=== PATIENT | male | born 1950 | race Caucasian/White ===

== ENCOUNTER → 2017-01-23 | Outpatient (CLI) | payer BC, MEDICARE ==
[~2017-01-23] MED LIST: ALOG1TAB2 PO; ASPI-231 PO; GLIM2TAB33 PO; LISI10TA6 PO; METF-316 PO; SIMV-8 PO
[2017-01-23 09:52] LABS: Urine RBC None Seen /hpf (0 - 3)
[2017-01-23 10:18] LABS: Urine Bilirubin Negative (Negative); Urine Blood Negative /uL (Negative); Urine Glucose Normal (Normal); Urine Ketone Negative (Negative); Urine Nitrite Negative (Negative); Urine Squamous Epithelial Cell FEW /hpf (<5); Urine Urobilinogen Normal (Negative)
[2017-01-23 10:34] LABS: Bilirubin, Total 1.1 mg/dL (0.2-1.0); Calcium 8.7 mg/dL (8.5-10.1); Potassium 4.3 mmol/L (3.5-5.1); Total Protein 7.5 g/dL (6.4-8.2)
[2017-01-23 10:41] LABS: INR 1.07 (0.9-1.15); Partial Thromboplastin Time 28.7 sec (22.64-33.71)
[2017-01-23 10:42] LABS: Urine Color Yellow (Yellow)
[2017-01-23 10:50] LABS: Basophils # (auto) 0 uL; Basophils % (auto) 0.4 % (0.0-2.0); Eosinophils # (auto) 0.1 uL; Eosinophils % (auto) 1.7 % (0.0-7.0); Hematocrit 43.1 % (41.0-53.0); Hemoglobin 14.5 g/dL (13.5-17.5); Lymphocytes # (auto) 1.8 uL; Mean Corpuscular Hemoglobin 31.5 pg (28.0-32.0); Mean Corpuscular Hgb Conc. 33.7 g/dL (32.0-36.0); Mean Corpuscular Volume 93.7 fL (80.0-100.0); Mean Platelet Volume 8.9 fL (7.4-10.4); Monocytes # (auto) 0.6 uL; Neutrophils # (auto) 4.1 uL; Neutrophils % (auto) 61.9 % (37.0-80.0); Platelet Count (auto) 201 10^3/uL (140-450); Red Cell Distribution Width 12.7 % (11.6-16.0); White Blood Cell 6.6 10^3/uL (4.4-10.8)
== END | disposition home or self-care (01) ==
LOC: LAB 09:10
PROVIDERS: ATTEND Orthopaedic Surgery
DX: M17.9 Osteoarthritis of knee, unspecified (principal)
CPT/HCPCS: 36415; 80053; 81001; 83036; 85025; 85610; 85730; 86850; 86900; 86901

== ENCOUNTER 2017-01-27 06:13 | Inpatient (IN) | payer BC, MEDICARE ==
[~2017-01-27] VITALS: Ht 203.2 cm; Wt 158.6 kg
[2017-01-27] MEDS ORDERED: ceFAZolin 1GM/50ML D5W 50 ML IV ONE (06:53)
[2017-01-27] MEDS ORDERED: MIDAZOLAM HCL 1MG/1ML-2 ML VIAL ONE (07:30)
[2017-01-27] MEDS ORDERED: ROCURONIUM 10MG/ML 10ML VIAL IV ONE (07:30)
[2017-01-27] MEDS ORDERED: fentaNYL CITRATE 5 ML ONE ×2 (07:30→07:57)
[2017-01-27] MEDS ORDERED: LIDOCAINE 1% HCL (LOCAL ANESTH.) INJ 20ML MDV ONE (07:42)
[2017-01-27] MEDS ORDERED: BUPIVACAINE 0.25% INJ 50ML VIAL ONE (07:43)
[2017-01-27] MEDS ORDERED: BUPIVACAINE W/ EPINEPH 0.25% INJ 50ML MDV ONE (07:43)
[2017-01-27] MEDS ORDERED: LIDOCAINE W/ EPINEPHRINE 1 % INJ 30ML ONE (07:43)
[2017-01-27] MEDS ORDERED: SUCCINYLCHOLINE CHLORIDE 20 MG/ML 10ML VIAL IV ONE (07:46)
[2017-01-27] MEDS ORDERED: GLYCOPYRROLATE 0.2 MG/ML 1ML VIAL IV ONE (07:51)
[2017-01-27] MEDS ORDERED: PROPOFOL 10 MG/ML 20 ML IV ONE (07:51)
[2017-01-27] MEDS ORDERED: KETOROLAC TROMETH 30 MG/ML 1ML VIAL IV ONE (07:51)
[2017-01-27] MEDS ORDERED: HYDROmorphone HCL 2 MG/ML VL ONE (09:26)
[2017-01-27] MEDS ORDERED: hydrALAZINE HCL 20 MG/ML VL IV PRN (10:45)
[2017-01-27] MEDS ORDERED: HYDROmorphone HCL 2 MG/ML VL IV PRN (10:45)
[2017-01-27] MEDS ORDERED: ePHEDrine SULFATE 50 MG/ML AMP IV PRN (10:45)
[2017-01-27] MEDS ORDERED: ONDANSETRON HCL 4 MG/2 ML VIAL IV ONE (10:45)
[2017-01-27] MEDS ORDERED: HYDROcodone-ACET 10/325MG TAB PO PRN (11:00)
[2017-01-27] MEDS ORDERED: TEMAZEPAM 15 MG CAP PO PRN (11:00)
[2017-01-27] MEDS ORDERED: ACETAMINOPHEN 325 MG TAB PO PRN (11:00)
[2017-01-27] MEDS ORDERED: ONDANSETRON HCL 4 MG/2 ML VIAL IV PRN (11:00)
[2017-01-27 12:30] VITALS: BP 144/68
[2017-01-27] MEDS: ceFAZolin 1GM/50ML D5W 50 ML IV SCH ×2 (12:39→18:39)
[2017-01-27] MEDS: LACTATED RINGER'S 1,000 ML IV SCH (12:40)
[2017-01-27 13:00] VITALS: BP 144/68
[2017-01-27] MEDS ORDERED: DEXTROSE (50%) 50ML SYRG IV PRN (14:15)
[2017-01-27] MEDS: ACCU-CHEK COMFORT CURVE STRIP VI SCH ×2 (16:55→22:00)
[2017-01-27] MEDS: InsuLIN REG 1unit/0.01ml Soln (100units/ml) SC SCH ×2 (16:56→22:00)
[2017-01-27 17:00] VITALS: BP 123/68
[2017-01-27] MEDS: GLIMEPIRIDE 2 MG TAB PO SCH (18:19)
[2017-01-27] MEDS: SODIUM CHLOR 0.9% PF (SALINE LOCK) 10ML VIAL IV SCH ×2 (18:20→21:58)
[2017-01-27] MEDS: metFORMIN HYDROCHLORIDE 500 MG TAB PO SCH (18:20)
[2017-01-27] MEDS: HYDROmorphone HCL 2 MG/ML VL IV PRN (20:03)
[2017-01-27 21:30] VITALS: BP 120/77
[2017-01-27] MEDS: DOCUSATE SOD 100 MG CAP PO SCH (21:58)
[2017-01-27] MEDS: LISINOPRIL 10 MG TAB PO SCH (21:58)
[2017-01-27] MEDS: oxyCODONE ER 10 MG TAB PO SCH (23:49)
[2017-01-28] MEDS: HYDROmorphone HCL 2 MG/ML VL IV PRN ×4 (01:56→20:48)
[2017-01-28] MEDS: ceFAZolin 1GM/50ML D5W 50 ML IV SCH (02:12)
[2017-01-28 05:00] VITALS: BP 128/70
[2017-01-28] MEDS: InsuLIN REG 1unit/0.01ml Soln (100units/ml) SC SCH ×4 (05:01→21:36)
[2017-01-28] MEDS: SODIUM CHLOR 0.9% PF (SALINE LOCK) 10ML VIAL IV SCH ×3 (05:01→20:47)
[2017-01-28] MEDS: metFORMIN HYDROCHLORIDE 500 MG TAB PO SCH ×2 (05:08→18:09)
[2017-01-28] MEDS: LACTATED RINGER'S 1,000 ML IV SCH (06:49)
[2017-01-28] MEDS: ACCU-CHEK COMFORT CURVE STRIP VI SCH ×4 (07:00→20:48)
[2017-01-28 07:55] VITALS: BP 138/66
[2017-01-28 08:15] LABS: Hematocrit 37.4 % (41.0-53.0); Hemoglobin 12.5 g/dL (13.5-17.5)
[2017-01-28] MEDS: GLIMEPIRIDE 2 MG TAB PO SCH ×2 (08:18→18:08)
[2017-01-28 09:00] VITALS: BP 138/66
[2017-01-28] MEDS: ENOXAPARIN SOD 40 MG/0.4 ML SYRINGE SC SCH (10:13)
[2017-01-28] MEDS: DOCUSATE SOD 100 MG CAP PO SCH ×2 (10:13→20:47)
[2017-01-28] MEDS: oxyCODONE ER 10 MG TAB PO SCH ×2 (10:14→20:48)
[2017-01-28 13:00] VITALS: BP 130/59
[2017-01-28 17:00] VITALS: BP 111/69
[2017-01-28] MEDS: LISINOPRIL 10 MG TAB PO SCH (20:47)
[2017-01-28 22:00] VITALS: BP 132/77
[2017-01-29] MEDS: LACTATED RINGER'S 1,000 ML IV SCH ×2 (02:49→22:47)
[2017-01-29 05:00] VITALS: BP 130/73
[2017-01-29] MEDS: SODIUM CHLOR 0.9% PF (SALINE LOCK) 10ML VIAL IV SCH ×3 (05:17→22:46)
[2017-01-29] MEDS: ACCU-CHEK COMFORT CURVE STRIP VI SCH ×4 (05:18→22:47)
[2017-01-29] MEDS: HYDROmorphone HCL 2 MG/ML VL IV PRN ×4 (05:23→19:20)
[2017-01-29] MEDS: InsuLIN REG 1unit/0.01ml Soln (100units/ml) SC SCH ×4 (05:23→22:00)
[2017-01-29] MEDS: metFORMIN HYDROCHLORIDE 500 MG TAB PO SCH ×2 (05:23→18:00)
[2017-01-29 07:33] LABS: Hematocrit 35.2 % (41.0-53.0)
[2017-01-29 08:00] VITALS: BP 124/62
[2017-01-29] MEDS: GLIMEPIRIDE 2 MG TAB PO SCH ×2 (09:06→18:00)
[2017-01-29] MEDS: DOCUSATE SOD 100 MG CAP PO SCH ×2 (10:43→22:29)
[2017-01-29] MEDS: oxyCODONE ER 10 MG TAB PO SCH ×2 (10:43→22:46)
[2017-01-29] MEDS: ENOXAPARIN SOD 40 MG/0.4 ML SYRINGE SC SCH (10:43)
[2017-01-29 13:00] VITALS: BP 125/58
[2017-01-29 17:00] VITALS: BP 124/61
[2017-01-29 20:05] VITALS: BP 117/61
[2017-01-29 22:00] VITALS: BP 117/61
[2017-01-29] MEDS: LISINOPRIL 10 MG TAB PO SCH (22:30)
[2017-01-30] MEDS: HYDROmorphone HCL 2 MG/ML VL IV PRN ×4 (02:23→23:20)
[2017-01-30 05:00] VITALS: BP 130/77
[2017-01-30] MEDS: SODIUM CHLOR 0.9% PF (SALINE LOCK) 10ML VIAL IV SCH ×3 (06:00→21:38)
[2017-01-30] MEDS: metFORMIN HYDROCHLORIDE 500 MG TAB PO SCH ×2 (06:46→18:02)
[2017-01-30] MEDS: InsuLIN REG 1unit/0.01ml Soln (100units/ml) SC SCH ×4 (06:56→21:44)
[2017-01-30] MEDS: ACCU-CHEK COMFORT CURVE STRIP VI SCH ×4 (06:56→21:39)
[2017-01-30 08:00] VITALS: BP_SYST 117; BP_SYST 119; BP_DIAS 52; BP_DIAS 61
[2017-01-30 08:42] LABS: Hematocrit 33.9 % (41.0-53.0); Hemoglobin 11.4 g/dL (13.5-17.5)
[2017-01-30] MEDS: GLIMEPIRIDE 2 MG TAB PO SCH ×2 (08:47→18:01)
[2017-01-30] MEDS: DOCUSATE SOD 100 MG CAP PO SCH ×2 (08:48→21:38)
[2017-01-30] MEDS: ENOXAPARIN SOD 40 MG/0.4 ML SYRINGE SC SCH (08:48)
[2017-01-30] MEDS: oxyCODONE ER 10 MG TAB PO SCH ×2 (08:48→21:37)
[2017-01-30] MEDS: LACTATED RINGER'S 1,000 ML IV SCH (09:01)
[2017-01-30 13:00] VITALS: BP 106/57
[2017-01-30 17:00] VITALS: BP 110/59
[2017-01-30 20:04] VITALS: BP 105/48
[2017-01-30 21:14] VITALS: BP 105/48
[2017-01-30] MEDS: LISINOPRIL 10 MG TAB PO SCH (21:38)
[2017-01-31 05:05] VITALS: BP 135/65
[2017-01-31] MEDS: SODIUM CHLOR 0.9% PF (SALINE LOCK) 10ML VIAL IV SCH ×2 (06:09→14:00)
[2017-01-31] MEDS: metFORMIN HYDROCHLORIDE 500 MG TAB PO SCH (06:26)
[2017-01-31] MEDS: ACCU-CHEK COMFORT CURVE STRIP VI SCH ×2 (06:26→11:30)
[2017-01-31] MEDS: InsuLIN REG 1unit/0.01ml Soln (100units/ml) SC SCH ×2 (06:26→11:30)
[2017-01-31 07:08] LABS: Hematocrit 34.3 % (41.0-53.0); Hemoglobin 11.6 g/dL (13.5-17.5)
[2017-01-31 08:00] VITALS: BP 129/68
[2017-01-31] MEDS: GLIMEPIRIDE 2 MG TAB PO SCH (08:58)
[2017-01-31 09:00] VITALS: BP 129/68
[2017-01-31] MEDS: ENOXAPARIN SOD 40 MG/0.4 ML SYRINGE SC SCH (10:48)
[2017-01-31] MEDS: DOCUSATE SOD 100 MG CAP PO SCH (10:48)
[2017-01-31] MEDS: oxyCODONE ER 10 MG TAB PO SCH (10:50)
[2017-01-31 13:42] VITALS: BP 142/73
== END 2017-01-31 14:45 | disposition home or self-care (01) | DRG 470 ==
LOC: SUR 06:13 → CENTRAL 06:14
PROVIDERS: ADMIT Orthopaedic Surgery; ATTEND Internal Medicine
PROC: 0MBN0ZZ Excision of Right Knee Bursa and Ligament, Open Approach (ICD-10-PCS; 2017-01-27)
PROC: 0SRC0J9 Replacement of Right Knee Joint with Synthetic Substitute, Cemented, Open Approach (ICD-10-PCS; principal; 2017-01-27 07:51)
DX: M17.11 Unilateral primary osteoarthritis, right knee (principal); E66.9 Obesity, unspecified; E11.9 Type 2 diabetes mellitus without complications; M70.41 Prepatellar bursitis, right knee; Z68.38 Body mass index [BMI] 38.0-38.9, adult
CPT/HCPCS: 36415; 73562; 82962; 85014; 85018; 97110; 97116; 97530; J0330; J0690; J1815; J1885; J2001; J2250; J2704; J3490

== ENCOUNTER 2017-02-04 18:17 | Emergency (ER) | payer BC, MEDICARE ==
[~2017-02-04] VITALS: Ht 203.2 cm; Wt 136.1 kg
[~2017-02-04 18:17] MED LIST changes: -ASPI-231 PO
[2017-02-04 18:29] VITALS: BP 154/89
[2017-02-04 20:17] LABS: Basophils # (auto) 0 uL; Basophils % (auto) 0.5 % (0.0-2.0); Eosinophils # (auto) 0.1 uL; Eosinophils % (auto) 1.8 % (0.0-7.0); Hemoglobin 11.3 g/dL (13.5-17.5); Lymphocytes # (auto) 1.4 uL; Lymphocytes % (auto) 17.8 % (10.0-50.0); Mean Corpuscular Hemoglobin 31.4 pg (28.0-32.0); Mean Corpuscular Hgb Conc. 33.2 g/dL (32.0-36.0); Mean Corpuscular Volume 94.6 fL (80.0-100.0); Mean Platelet Volume 7.6 fL (7.4-10.4); Monocytes # (auto) 0.8 uL; Monocytes % (auto) 9.8 % (0.0-12.0); Neutrophils # (auto) 5.5 uL; Neutrophils % (auto) 70.1 % (37.0-80.0); Platelet Count (auto) 349 10^3/uL (140-450); Red Cell Distribution Width 12.9 % (11.6-16.0); White Blood Cell 7.9 10^3/uL (4.4-10.8)
[2017-02-04 20:21] LABS: Albumin 3.1 g/dL (3.4-5.0); BUN/Creatinine Ratio 16.9; Calcium 8.2 mg/dL (8.5-10.1); Potassium 4.1 mmol/L (3.5-5.1)
[2017-02-04 20:25] LABS: Total Protein 6.8 g/dL (6.4-8.2)
== END 2017-02-05 03:14 | disposition left against medical advice (07) ==
LOC: EDBD 18:17 → ER 18:21
DX: M25.561 Pain in right knee (principal); Z53.21 Procedure and treatment not carried out due to patient leaving prior to being seen by health care provider
CPT/HCPCS: 36415; 80053; 83605; 85025; 87040

== ENCOUNTER 2017-02-05 07:06 | Inpatient (IN) | payer BC, MEDICARE ==
[~2017-02-05] VITALS: Ht 203.2 cm; Wt 130.6 kg
[2017-02-05 09:57] VITALS: BP 119/63
[2017-02-05 10:00] VITALS: BP 119/63
[2017-02-05] MEDS ORDERED: VANCOMYCIN PER PHARMACY 0 MG IV SCH (10:45)
[2017-02-05] MEDS ORDERED: ENOXAPARIN SOD 40 MG/0.4 ML SYRINGE SC ONE (10:45)
[2017-02-05] MEDS ORDERED: ONDANSETRON HCL 4 MG/2 ML VIAL IV PRN (10:45)
[2017-02-05] MEDS ORDERED: DEXTROSE (50%) 50ML SYRG IV PRN (10:45)
[2017-02-05] MEDS: InsuLIN REG 1unit/0.01ml Soln (100units/ml) SC SCH ×3 (11:30→22:39)
[2017-02-05 11:44] LABS: Basophils # (auto) 0 uL; Basophils % (auto) 0.4 % (0.0-2.0); Eosinophils # (auto) 0.2 uL; Eosinophils % (auto) 2.1 % (0.0-7.0); Hematocrit 33.7 % (41.0-53.0); Hemoglobin 11.2 g/dL (13.5-17.5); Lymphocytes # (auto) 1.7 uL; Lymphocytes % (auto) 19.2 % (10.0-50.0); Mean Corpuscular Hemoglobin 31.3 pg (28.0-32.0); Mean Corpuscular Hgb Conc. 33.1 g/dL (32.0-36.0); Mean Corpuscular Volume 94.6 fL (80.0-100.0); Mean Platelet Volume 7.1 fL (7.4-10.4); Monocytes # (auto) 0.9 uL; Monocytes % (auto) 10.3 % (0.0-12.0); Neutrophils # (auto) 5.9 uL; Platelet Count (auto) 363 10^3/uL (140-450); Red Cell Distribution Width 12.9 % (11.6-16.0); White Blood Cell 8.7 10^3/uL (4.4-10.8)
[2017-02-05 12:04] LABS: Albumin 3.1 g/dL (3.4-5.0); BUN/Creatinine Ratio 16.7; Calcium 8.5 mg/dL (8.5-10.1); Potassium 4.2 mmol/L (3.5-5.1)
[2017-02-05] MEDS: HYDROmorphone HCL 2 MG/ML VL IV PRN ×3 (12:25→21:03)
[2017-02-05] MEDS: SODIUM CHLORIDE 0.9% 1,000 ML IV SCH (12:27)
[2017-02-05] MEDS: PIPERACILLIN-TAZOB 3.375GM 100 ML IV SCH ×3 (12:27→23:43)
[2017-02-05] MEDS: ACCU-CHEK COMFORT CURVE STRIP VI SCH ×3 (12:32→22:39)
[2017-02-05 12:41] VITALS: BP 137/78
[2017-02-05 12:48] LABS: INR 1.01 (0.9-1.15); Partial Thromboplastin Time 30.4 sec (22.64-33.71); Prothrombin Time 10.9 sec (9.37-12.3)
[2017-02-05] MEDS: VANCOMYCIN 1,500 MG in D5W 5% 250 ML IV SCH (14:51)
[2017-02-05 17:00] VITALS: BP 116/65
[2017-02-05] MEDS ORDERED: IOHEXOL 350 MG/ML 100ML IJ ONE (17:07)
[2017-02-05 21:07] VITALS: BP 144/80
[2017-02-05] MEDS: HYDROcodone-ACET 5/325MG TAB PO PRN (22:38)
[2017-02-06] MEDS: VANCOMYCIN 1,500 MG in D5W 5% 250 ML IV SCH ×2 (03:03→15:07)
[2017-02-06] MEDS: HYDROmorphone HCL 2 MG/ML VL IV PRN ×9 (03:04→23:20)
[2017-02-06] MEDS: SODIUM CHLORIDE 0.9% 1,000 ML IV SCH ×2 (03:25→20:03)
[2017-02-06] MEDS: PIPERACILLIN-TAZOB 3.375GM 100 ML IV SCH (05:03)
[2017-02-06 05:30] VITALS: BP 128/61
[2017-02-06 05:38] LABS: Urine RBC None Seen /hpf (0 - 3)
[2017-02-06 05:51] LABS: Urine Bilirubin Negative (Negative); Urine Blood Negative /uL (Negative); Urine Color Yellow (Yellow); Urine Glucose Normal (Normal); Urine Ketone Negative (Negative); Urine Nitrite Negative (Negative); Urine Urobilinogen Normal (Negative); Urine pH 6.5 (5.0-8.0)
[2017-02-06] MEDS: ACCU-CHEK COMFORT CURVE STRIP VI SCH ×4 (06:20→21:50)
[2017-02-06] MEDS: InsuLIN REG 1unit/0.01ml Soln (100units/ml) SC SCH ×4 (06:20→21:50)
[2017-02-06 06:23] LABS: Basophils # (auto) 0 uL; Basophils % (auto) 0.6 % (0.0-2.0); Eosinophils # (auto) 0.2 uL; Eosinophils % (auto) 3.8 % (0.0-7.0); Hematocrit 32.5 % (41.0-53.0); Lymphocytes # (auto) 1.3 uL; Lymphocytes % (auto) 20.7 % (10.0-50.0); Mean Corpuscular Hemoglobin 31.8 pg (28.0-32.0); Mean Corpuscular Hgb Conc. 33.8 g/dL (32.0-36.0); Mean Corpuscular Volume 94.2 fL (80.0-100.0); Mean Platelet Volume 7.4 fL (7.4-10.4); Monocytes # (auto) 0.6 uL; Monocytes % (auto) 9.9 % (0.0-12.0); Platelet Count (auto) 347 10^3/uL (140-450); Red Cell Distribution Width 12.3 % (11.6-16.0); White Blood Cell 6.2 10^3/uL (4.4-10.8)
[2017-02-06 06:58] LABS: Albumin 2.8 g/dL (3.4-5.0); BUN/Creatinine Ratio 12.8; Bilirubin, Total 1.1 mg/dL (0.2-1.0); Calcium 8.3 mg/dL (8.5-10.1); Total Protein 6.4 g/dL (6.4-8.2)
[2017-02-06] MEDS ORDERED: ceFAZolin 1GM VL ONE ×2 (08:28→10:25)
[2017-02-06] MEDS ORDERED: fentaNYL CITRATE 100 MCG/2 ML VL ONE (08:46)
[2017-02-06] MEDS ORDERED: PROPOFOL 10 MG/ML 20 ML IV ONE (08:46)
[2017-02-06] MEDS ORDERED: SODIUM CHLORIDE LOCK 20 ML ONE (08:46)
[2017-02-06] MEDS ORDERED: METOCLOPRAMIDE HCL 5MG/ml INJ 2ml VIAL ONE (08:46)
[2017-02-06] MEDS ORDERED: MIDAZOLAM HCL 1MG/1ML-2 ML VIAL ONE (08:46)
[2017-02-06] MEDS ORDERED: MEPERIDINE HCL (50 MG/ML) 1 ML VIAL ONE (08:46)
[2017-02-06] MEDS ORDERED: ROCURONIUM 10MG/ML 10ML VIAL IV ONE (08:46)
[2017-02-06] MEDS ORDERED: SUCCINYLCHOLINE CHLORIDE 20 MG/ML 10ML VIAL IV ONE (08:47)
[2017-02-06 08:59] VITALS: BP 125/66
[2017-02-06] MEDS ORDERED: LIDOCAINE 1% HCL (LOCAL ANESTH.) INJ 20ML MDV ONE (09:50)
[2017-02-06] MEDS ORDERED: BUPIVACAINE W/ EPINEPH 0.25% INJ 50ML MDV ONE (09:50)
[2017-02-06] MEDS ORDERED: LIDOCAINE W/ EPINEPHRINE 1 % INJ 30ML ONE (09:50)
[2017-02-06] MEDS ORDERED: BUPIVACAINE 0.25% INJ 50ML VIAL ONE (09:51)
[2017-02-06] MEDS ORDERED: KETOROLAC TROMETH 60MG/2ML VIAL IM ONE (10:27)
[2017-02-06] MEDS ORDERED: ACCU-CHEK COMFORT CURVE STRIP VI ONE (10:45)
[2017-02-06] MEDS ORDERED: ONDANSETRON HCL 4 MG/2 ML VIAL IV ONE (10:45)
[2017-02-06] MEDS ORDERED: ONDANSETRON HCL 4 MG/2 ML VIAL IV PRN (10:45)
[2017-02-06] MEDS ORDERED: KETOROLAC TROMETH 30 MG/ML 1ML VIAL IV ONE (10:45)
[2017-02-06] MEDS: ENOXAPARIN SOD 40 MG/0.4 ML SYRINGE SC SCH (12:40)
[2017-02-06] MEDS: ceFAZolin 1GM/50ML D5W 50 ML IV SCH ×2 (14:03→18:34)
[2017-02-06 17:00] VITALS: BP 114/68
[2017-02-06] MEDS: oxyCODONE ER 10 MG TAB PO SCH (21:47)
[2017-02-06 22:00] VITALS: BP 116/57
[2017-02-07] MEDS: ceFAZolin 1GM/50ML D5W 50 ML IV SCH ×4 (00:52→18:42)
[2017-02-07] MEDS: HYDROmorphone HCL 2 MG/ML VL IV PRN ×5 (01:50→20:06)
[2017-02-07] MEDS: VANCOMYCIN 1,500 MG in D5W 5% 250 ML IV SCH ×2 (03:05→15:40)
[2017-02-07 04:55] VITALS: BP 119/58
[2017-02-07 06:01] LABS: Basophils # (auto) 0 uL; Basophils % (auto) 0.5 % (0.0-2.0); Eosinophils # (auto) 0.2 uL; Eosinophils % (auto) 1.9 % (0.0-7.0); Hematocrit 31.7 % (41.0-53.0); Hemoglobin 10.7 g/dL (13.5-17.5); Lymphocytes # (auto) 1.3 uL; Lymphocytes % (auto) 15.9 % (10.0-50.0); Mean Corpuscular Hemoglobin 31.8 pg (28.0-32.0); Mean Corpuscular Hgb Conc. 33.6 g/dL (32.0-36.0); Mean Corpuscular Volume 94.5 fL (80.0-100.0); Mean Platelet Volume 7.8 fL (7.4-10.4); Monocytes # (auto) 0.8 uL; Monocytes % (auto) 9.7 % (0.0-12.0); Platelet Count (auto) 316 10^3/uL (140-450); Red Cell Distribution Width 12.1 % (11.6-16.0); White Blood Cell 8.3 10^3/uL (4.4-10.8)
[2017-02-07 06:19] LABS: Albumin 2.8 g/dL (3.4-5.0); Bilirubin, Total 0.9 mg/dL (0.2-1.0); Calcium 8.2 mg/dL (8.5-10.1); Potassium 4.3 mmol/L (3.5-5.1); Total Protein 6.2 g/dL (6.4-8.2)
[2017-02-07] MEDS: ACCU-CHEK COMFORT CURVE STRIP VI SCH ×4 (06:39→21:30)
[2017-02-07] MEDS: InsuLIN REG 1unit/0.01ml Soln (100units/ml) SC SCH ×4 (06:39→21:31)
[2017-02-07 07:23] VITALS: BP 93/63
[2017-02-07] MEDS: oxyCODONE ER 10 MG TAB PO SCH ×2 (09:52→21:30)
[2017-02-07] MEDS: ENOXAPARIN SOD 40 MG/0.4 ML SYRINGE SC SCH (09:52)
[2017-02-07] MEDS: SODIUM CHLORIDE 0.9% 1,000 ML IV SCH (12:45)
[2017-02-07 13:00] VITALS: BP 115/57
[2017-02-07 16:58] VITALS: BP 124/59
[2017-02-07 22:00] VITALS: BP 128/60
[2017-02-08] MEDS: ceFAZolin 1GM/50ML D5W 50 ML IV SCH ×4 (00:22→18:14)
[2017-02-08] MEDS: HYDROmorphone HCL 2 MG/ML VL IV PRN ×2 (00:27→06:19)
[2017-02-08] MEDS: VANCOMYCIN 1,500 MG in D5W 5% 250 ML IV SCH ×2 (02:45→15:28)
[2017-02-08 04:49] VITALS: BP 129/65
[2017-02-08 05:32] LABS: Basophils # (auto) 0.1 uL; Basophils % (auto) 1.4 % (0.0-2.0); Eosinophils # (auto) 0.2 uL; Hematocrit 33.3 % (41.0-53.0); Hemoglobin 11.2 g/dL (13.5-17.5); Lymphocytes # (auto) 1.5 uL; Lymphocytes % (auto) 17.4 % (10.0-50.0); Mean Corpuscular Hemoglobin 31.8 pg (28.0-32.0); Mean Corpuscular Hgb Conc. 33.7 g/dL (32.0-36.0); Mean Corpuscular Volume 94.2 fL (80.0-100.0); Mean Platelet Volume 7.5 fL (7.4-10.4); Monocytes # (auto) 0.9 uL; Monocytes % (auto) 9.7 % (0.0-12.0); Neutrophils # (auto) 6.2 uL; Neutrophils % (auto) 69.5 % (37.0-80.0); Platelet Count (auto) 335 10^3/uL (140-450); Red Cell Distribution Width 12.1 % (11.6-16.0); White Blood Cell 8.9 10^3/uL (4.4-10.8)
[2017-02-08 05:45] LABS: INR 1.06 (0.9-1.15); Prothrombin Time 11.4 sec (9.37-12.3)
[2017-02-08] MEDS: SODIUM CHLORIDE 0.9% 1,000 ML IV SCH ×2 (06:19→22:04)
[2017-02-08] MEDS: ACCU-CHEK COMFORT CURVE STRIP VI SCH ×4 (06:20→22:03)
[2017-02-08] MEDS: InsuLIN REG 1unit/0.01ml Soln (100units/ml) SC SCH ×4 (06:20→22:00)
[2017-02-08 06:32] LABS: Albumin 2.7 g/dL (3.4-5.0); BUN/Creatinine Ratio 11.3; Bilirubin, Total 0.9 mg/dL (0.2-1.0); Calcium 7.9 mg/dL (8.5-10.1); Magnesium 2.1 mg/dL (1.6-2.6); Total Protein 6.5 g/dL (6.4-8.2)
[2017-02-08 08:00] VITALS: BP 117/61
[2017-02-08 09:00] VITALS: BP 114/66
[2017-02-08] MEDS: ENOXAPARIN SOD 40 MG/0.4 ML SYRINGE SC SCH (09:46)
[2017-02-08] MEDS: oxyCODONE ER 10 MG TAB PO SCH ×2 (09:46→22:03)
[2017-02-08 13:00] VITALS: BP 117/61
[2017-02-08 17:00] VITALS: BP 119/69
[2017-02-08 21:53] VITALS: BP 124/67
[2017-02-09 01:52] LABS: Basophils # (auto) 0 uL; Basophils % (auto) 0.5 % (0.0-2.0); Eosinophils # (auto) 0.3 uL; Eosinophils % (auto) 3.2 % (0.0-7.0); Hematocrit 30.6 % (41.0-53.0); Hemoglobin 10.4 g/dL (13.5-17.5); Lymphocytes # (auto) 1.7 uL; Lymphocytes % (auto) 21.5 % (10.0-50.0); Mean Corpuscular Hemoglobin 31.8 pg (28.0-32.0); Mean Corpuscular Hgb Conc. 33.8 g/dL (32.0-36.0); Monocytes % (auto) 11.8 % (0.0-12.0); Neutrophils # (auto) 5.1 uL; Platelet Count (auto) 371 10^3/uL (140-450); Red Cell Distribution Width 12.5 % (11.6-16.0); White Blood Cell 8.1 10^3/uL (4.4-10.8)
[2017-02-09 02:06] LABS: INR 1.06 (0.9-1.15); Prothrombin Time 11.4 sec (9.37-12.3)
[2017-02-09 02:10] LABS: BUN/Creatinine Ratio 16.7; Magnesium 2.1 mg/dL (1.6-2.6)
[2017-02-09] MEDS: VANCOMYCIN 1,500 MG in D5W 5% 250 ML IV SCH (02:54)
[2017-02-09 05:00] VITALS: BP 130/66
[2017-02-09] MEDS: ACCU-CHEK COMFORT CURVE STRIP VI SCH (06:11)
[2017-02-09] MEDS: InsuLIN REG 1unit/0.01ml Soln (100units/ml) SC SCH (06:12)
[2017-02-09] MEDS: HYDROcodone-ACET 5/325MG TAB PO PRN (08:45)
[2017-02-09] MEDS: oxyCODONE ER 10 MG TAB PO SCH (10:17)
[2017-02-09] MEDS: ENOXAPARIN SOD 40 MG/0.4 ML SYRINGE SC SCH (10:17)
[2017-02-09 10:58] VITALS: BP 130/68
[2017-02-09 13:01] VITALS: BP 124/62
== END 2017-02-09 15:00 | disposition home or self-care (01) | DRG 854 ==
LOC: CENTRAL 08:51
PROVIDERS: ADMIT Orthopaedic Surgery; ATTEND Internal Medicine
PROC: 0S9C0ZZ Drainage of Right Knee Joint, Open Approach (ICD-10-PCS; principal; 2017-02-06 08:42)
DX: A41.9 Sepsis, unspecified organism (principal); L03.115 Cellulitis of right lower limb; M00.9 Pyogenic arthritis, unspecified; E66.9 Obesity, unspecified; E11.9 Type 2 diabetes mellitus without complications; E78.5 Hyperlipidemia, unspecified; Z68.31 Body mass index [BMI] 31.0-31.9, adult
CPT/HCPCS: 36415; 71010; 73701; 80048; 80053; 80202; 81001; 82962; 83735; 85025; 85610; 85730; 87040; 87070; 87075; 87081; 87205; 93971; 97116; 97530; J0330; J0690; J1815; J1885; J2001; J2250; J2543; J2704; J3490; J7060